=== PATIENT | female | born 1940 | race Asian ===

== ENCOUNTER 2019-07-05 17:26 | Emergency (ER) | payer OTHER, MEDICAID ==
[~2019-07-05] VITALS: Ht 152.4 cm; Wt 63.5 kg
[2019-07-05 17:30] VITALS: BP_SYST 122
[2019-07-05 18:20] LABS: BILIRUBIN,URINE NEGATIVE (NEGATIVE); BLOOD, URINE 2+ (NEGATIVE); CLARITY/URINE CLEAR (CLEAR); COLOR,URINE YELLOW (YELLOW); GLUCOSE,URINE NEGATIVE (NEGATIVE); KETONES,URINE NEGATIVE (NEGATIVE); NITRITE, URINE NEGATIVE (NEGATIVE); PH,URINE 5.5 (5.0-8.0); PROTEIN URINE NEGATIVE (NEGATIVE); UROBILINOGEN,URINE 0.2 (0.2-1.0)
[2019-07-05 18:28] LABS: LEUKOCYTE ESTERASE ,URINE TRACE (NEGATIVE)
[2019-07-05 18:33] LABS: BARBITURATE, URINE NEGATIVE (NEG <=200); BENZODIAZEPINE, URINE NEGATIVE (NEG <=150); CANNABINOID, URINE NEGATIVE (NEG <=50); COCAINE, URINE NEGATIVE (NEG <=150); METHAMPHETAMINES SCREEN,URINE NEGATIVE (NEG <=500); OPIATE, URINE NEGATIVE (NEG <=100); PHENCYCLIDINE SCREEN,URINE NEGATIVE (NEG <=25); UR TRICYCLIC ANTIDEPRESSANTS NEGATIVE (NEG <=300); URINE AMPHETAMINE NEGATIVE (NEG <=500); URINE METHADONE NEGATIVE (NEG <=200); URINE OXYCODONE SCREEN NEGATIVE (NEG <=100); URINE PROPOXYPHENE SCREEN NEGATIVE (NEG <=300)
[2019-07-05 18:34] LABS: BACTERIA,URINE FEW /HPF (None Seen); MUCUS,URINE None Seen /LPF (None Seen); RBC,URINE 0-3 /HPF (0-3)
[2019-07-05 18:42] LABS: BASOPHILS # (AUTO) 0.1 K/uL (0.0-0.2); EOSINOPHILS # (AUTO) 0.1 K/uL (0.0-0.4); EOSINOPHILS % (AUTO) 1.6 % (0.0-4.0); HEMATOCRIT 40.8 % (36-48); HEMOGLOBIN 13.6 g/dL (12.0-16.0); LYMPHOCYTES # (AUTO) 1.3 K/uL (1.0-5.5); LYMPHOCYTES % (AUTO) 19.9 % (20.5-51.5); MEAN CORPUSCULAR HEMOGLOBIN 31 pg (27-31); MEAN CORPUSCULAR HGB CONC 33 % (32-36); MEAN CORPUSCULAR VOLUME 93 fL (79.0-98.0); MONOCYTES # (AUTO) 0.7 K/uL (0.0-1.0); MONOCYTES % (AUTO) 10.4 % (1.7-9.3); NEUTROPHILS # (AUTO) 4.4 K/uL (1.8-7.7); NEUTROPHILS % (AUTO) 67.1 % (40.0-70.0); RED BLOOD CELL COUNT(AUTO) 4.38 MIL/uL (4.2-6.2); RED CELL DISTRIBUTION WIDTH 12.7 % (9.0-15.0); WHITE BLOOD COUNT (AUTO) 6.6 K/uL (4.8-10.8)
[2019-07-05 18:52] LABS: ANION GAP 8 (5-15); CALCIUM 8.9 mg/dL (8.4-11.0); CHLORIDE 103 mmol/L (98-107); CREATININE 0.88 mg/dL (0.55-1.30); GLUCOSE 128 mg/dL (70-99); SODIUM SERUM 136 mmol/L (136-145); UREA NITROGEN, BLOOD 21 mg/dL (8-21)
[2019-07-05 19:00] LABS: ALANINE AMINOTRANSFERASE 32 U/L (12-78); ALBUMIN 3.2 g/dL (3.4-4.8); ASPARTATE AMINOTRANSFERASE 25 U/L (10-37); TOTAL BILIRUBIN 0.3 mg/dL (0.0-1.0)
[2019-07-05 19:01] LABS: PLATELET COUNT (AUTO) 280 K/uL (130-430)
[2019-07-05 19:06] LABS: ACETAMINOPHEN < 1 ug/mL (1-30); ALCOHOL, BLOOD < 3 mg/dL (<10)
[2019-07-05 19:18] LABS: CHOLESTEROL 259 mg/dL (<200); HDL CHOLESTEROL 50 mg/dL (>55); LDL CHOLESTEROL 142 mg/dL (<100); TRIGLYCERIDES 369 mg/dL (30-150)
[2019-07-05 19:48] VITALS: BP_SYST 122
== END 2019-07-05 19:48 ==
LOC: SED 17:26
DX: F29 Unspecified psychosis not due to a substance or known physiological condition (principal); I10 Essential (primary) hypertension
CPT/HCPCS: 36415; 80053; 80061; 80307; 81000; 83036; 85025; 87081; 99285; G0480; G0481; G0482

== ENCOUNTER 2019-07-07 14:51 | Outpatient (CLI) | payer OTHER, MEDICAID ==
[2019-07-07 15:49] LABS: CHOLESTEROL 202 mg/dL (<200); HDL CHOLESTEROL 43 mg/dL (>55); LDL CHOLESTEROL 128 mg/dL (<100); TRIGLYCERIDES 305 mg/dL (30-150)
== END 2019-07-07 20:00 | disposition home or self-care (01) ==
LOC: SLB 14:51
PROVIDERS: ATTEND Psychiatry & Neurology Psychiatry
DX: I12.9 Hypertensive chronic kidney disease with stage 1 through stage 4 chronic kidney disease, or unspecified chronic kidney disease (principal); I82.402 Acute embolism and thrombosis of unspecified deep veins of left lower extremity; I48.0 Paroxysmal atrial fibrillation; F03.90 Unspecified dementia, unspecified severity, without behavioral disturbance, psychotic disturbance, mood disturbance, and anxiety; M19.90 Unspecified osteoarthritis, unspecified site; F29 Unspecified psychosis not due to a substance or known physiological condition; R73.9 Hyperglycemia, unspecified
CPT/HCPCS: 36415; 80061; 83036

== ENCOUNTER 2019-07-17 14:17 | Outpatient (CLI) | payer OTHER, MEDICAID ==
[2019-07-17 17:37] LABS: ALANINE AMINOTRANSFERASE 42 U/L (12-78); ALBUMIN 3.1 g/dL (3.4-4.8); ANION GAP 8 (5-15); ASPARTATE AMINOTRANSFERASE 28 U/L (10-37); CALCIUM 8.8 mg/dL (8.4-11.0); CHLORIDE 100 mmol/L (98-107); CREATININE 0.79 mg/dL (0.55-1.30); GLUCOSE 194 mg/dL (70-99); POTASSIUM 4.3 mmol/L (3.5-5.1); SODIUM SERUM 133 mmol/L (136-145); TOTAL BILIRUBIN 0.4 mg/dL (0.0-1.0); UREA NITROGEN, BLOOD 23 mg/dL (8-21)
[2019-07-17 17:38] LABS: HEMATOCRIT 43.8 % (36-48); HEMOGLOBIN 15.1 g/dL (12.0-16.0); MEAN CORPUSCULAR HEMOGLOBIN 32 pg (27-31); MEAN CORPUSCULAR HGB CONC 35 % (32-36); MEAN CORPUSCULAR VOLUME 92 fL (79.0-98.0); PLATELET COUNT (AUTO) 243 K/uL (130-430); RED BLOOD CELL COUNT(AUTO) 4.73 MIL/uL (4.2-6.2); RED CELL DISTRIBUTION WIDTH 12.7 % (9.0-15.0); WHITE BLOOD COUNT (AUTO) 7.6 K/uL (4.8-10.8)
[2019-07-17 18:48] LABS: BAND % (MANUAL) 8 % (0-6); BASOPHILS % (MANUAL) 0 % (0-2); EOSINOPHILS % (MANUAL) 1 % (0-7); LYMPHOCYTES % (MANUAL) 12 % (20-46); MONOCYTES % (MANUAL) 6 % (0-11)
== END 2019-07-17 19:02 | disposition home or self-care (01) ==
LOC: SLB 14:17
PROVIDERS: ATTEND Psychiatry & Neurology Psychiatry
DX: F29 Unspecified psychosis not due to a substance or known physiological condition (principal); I48.0 Paroxysmal atrial fibrillation; F03.90 Unspecified dementia, unspecified severity, without behavioral disturbance, psychotic disturbance, mood disturbance, and anxiety; M19.90 Unspecified osteoarthritis, unspecified site; I82.402 Acute embolism and thrombosis of unspecified deep veins of left lower extremity; I12.9 Hypertensive chronic kidney disease with stage 1 through stage 4 chronic kidney disease, or unspecified chronic kidney disease; N18.9 Chronic kidney disease, unspecified
CPT/HCPCS: 36415; 80053; 85007; 85027